=== PATIENT | female | born 1970 | race Hispanic/Latino ===

== ENCOUNTER 2017-02-27 20:31 | Emergency (ER) | payer BC ==
[2017-02-27 20:31] VITALS: BMI 38.9
[2017-02-27 20:40] VITALS: RESP 18; TEMP 98.1; O2SAT 99
[2017-02-27 21:54] VITALS: BP 148/84; PULSE 78
== END 2017-02-27 21:55 | disposition left against medical advice (07) ==
LOC: ED 20:31
DX: Z02.89 Encounter for other administrative examinations (principal); I10 Essential (primary) hypertension

== ENCOUNTER 2017-03-11 13:11 | Emergency (ER) | payer BC ==
[2017-03-11 13:12] VITALS: BMI 38.9
[2017-03-11 13:25] VITALS: BP 144/90; PULSE 128; RESP 19; TEMP 98.7; O2SAT 98
[2017-03-11] MEDS ORDERED: Pantoprazole 40 mg EC Tab PO STA (13:49)
--- NOTE | 2017-03-11 13:52 | ED PDOC ---
Arrival/HPI - General Historian: Patient - History of Present Illness Time/Duration: > week Symptom Course: Worsening Quality: Burning - General Chief Complaint: Abdominal Pain Time Seen by Provider: 03/11/17 13:20 - History of Present Illness Narrative History of Present Illness (Text): 03/11/17 13:51 47 year old female with past medical history of hypertension, asthma, and lupus presents with epigastric pain. Patient reports the pain started 2 weeks ago. The pain is located at epigastrium, burning in quality, radiates under her ribs to her back, 5/10 in intensity. Initially patient took over the counter ranitidine which provided some relief, but it no longer helps her after a few days. The pain is worse with food intake and lying down. Patient was referred see to Dr. Nicole for this complaint. Patient was evaluated, had EKG and TSH done on 03/06/17 and was told they were normal. Patient is compliant with her medications. She reports feeling anxious for being in the hospital. Patient denies having headache, fever, chills, SOB, chest pain, coughs, lower extremity swelling or pain. (Leoncio Ku) Past Medical History - Provider Review Nursing Documentation Reviewed: Yes - Infectious Disease Hx of Infectious Diseases: None - Cardiac Hx Hypertension: Yes Other/Comment: LUPUS. 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) - Psychiatric Hx Psychophysiologic Disorder: Yes (SMOKED CIGARETTES,QUIT) Hx Substance Use: No - Past Surgical History Past Surgical History: Non-Contributing - Anesthesia Hx Anesthesia: Yes Hx Anesthesia Reactions: No Hx Malignant Hyperthermia: No - Suicidal Assessment Feels Threatened In Home Enviroment: No Family/Social History - Physician Review Nursing Documentation Reviewed: Yes Family/Social History: CVA/TIA, CAD/TN Smoking Status: Former Smoker Hx Alcohol Use: No Hx Substance Use: No Hx Substance Use Treatment: No Allergies/Home Meds Allergies/Adverse Reactions: Allergies No Known Allergies Allergy (Verified 03/11/17 13:25) Home Medications: Home Meds Medication Instructions Recorded Confirmed Hydroxychloroquine Sulfate 200 mg PO BID 12/15/14 03/11/17 [Plaquenil] Valsartan [Diovan] 80 mg PO DAILY 12/15/14 03/11/17 busPIRone [Buspar] 7.5 mg PO DAILY 03/11/17 03/11/17 Review of Systems - Physician Review All systems were reviewed & negative as marked: Yes - Review of Systems Constitutional: Normal. absent: Fevers Eyes: Normal ENT: Normal Respiratory: Normal. absent: SOB, Cough Cardiovascular: Normal. absent: Chest Pain, Palpitations, Edema, Calf Pain, Syncope Gastrointestinal: Abdominal Pain (epigastric), Nausea. absent: Stool Changes, Constipation, Vomiting Genitourinary Female: Normal. absent: Dysuria, Frequency, Hematuria Musculoskeletal: Normal. absent: Arthralgias, Back Pain Skin: Other (erythema) Neurological: Normal. absent: Headache, Dizziness Endocrine: Normal. absent: Diaphoresis, Polyuria, Polydipsia Hemo/Lymphatic: Normal Psychiatric: Anxiety Physical Exam Vital Signs Reviewed: Yes Temperature: Afebrile Blood Pressure: Normal Pulse: Tachycardic Respiratory Rate: Normal Appearance: Positive for: Well-Appearing, Non-Toxic, Comfortable Pain Distress: Mild Mental Status: Positive for: Alert and Oriented X 3 - Systems Exam Head: Present: Atraumatic, Normocephalic Pupils: Present: PERRL Extroacular Muscles: Present: EOMI Conjunctiva: Present: Normal Mouth: Present: Moist Mucous Membranes Neck: Present: Normal Range of Motion Respiratory/Chest: Present: Clear to Auscultation, Good Air Exchange. No: Respiratory Distress, Accessory Muscle Use Cardiovascular: Present: Normal S1, S2, Peripheal Pulses Present, Tachycardic. No: Murmurs, Irregular Rhythm Abdomen: Present: Tenderness (epigastric tenderness), Normal Bowel Sounds, Other (negative [place] sign). No: Distention, Peritoneal Signs, Guarding, McBurney's Point Tender, Hernias, Mass/Organomegaly Back: Present: Normal Inspection Upper Extremity: Present: Normal Inspection, Neurovascularly Intact. No: Cyanosis, Edema Lower Extremity: Present: Normal Inspection, Neurovascularly Intact. No: Edema Neurological: Present: GCS=15, CN II-XII Intact, Speech Normal Skin: Present: Warm, Dry, Normal Color, Erythematous (facial erythema). No: Rashes Psychiatric: Present: Alert, Oriented x 3, Normal Insight, Normal Concentration Medical Decision Making Re-evaluation Time: 14:48 Reassessment Condition: Improved ED Course and Treatment: 03/11/17 14:17 -CBC, CMP -Cardiac iso -Lipase -Protonix IV -IVF -recheck BP -EKG -Reassess and disposition DDx: GERD, pancreatitis, atypical [place] Prior visit: 12/15/16 for chest pain Progress Note: Pulse improved to 90bpm, BP 146/89. Epigastric abdominal pain improved. Tolerating oral fluid well, resting comfortably. 03/11/17 15:05 Discussed with patient extensively that although protonix helps with her symptoms but it is still very important to follow up with PMD and GI specialist for further work up and prison management of GERD. Patient verbalized full understanding of above discussion. Patient states that she fully agrees with and understands discharge instructions. (Leoncio Ku) 03/11/17 14:33 In agreement with resident note which contains more details about the patient. Patient was seen and evaluated with resident. Came up with plan and treatment together. Patient presents to the emergency department complaining of 2 week duration of epigastric pain radiating to ribs. Ordered labs, cardiac enzymes, EKG, to rule out cardiac etiologies. States symptoms resolved after protonix. Stable for discharge. Advised to follow up with PMD and present to emergency department for new/worsening symptoms. (Parker Cárdenas) - Lab Interpretations Lab Results: 03/11/17 14:20 03/11/17 14:20 Lab Results 03/11/17 14:20: Sodium 139, Potassium 3.8, Chloride 103, Carbon Dioxide 23, Anion Gap 17, BUN 10, Creatinine 0.6, Est GFR ( Amer) > 60, Est GFR (Non- Af Amer) > 60, Random Glucose 95, Calcium 9.9, Total Bilirubin 0.7, AST 22, ALT 28, Alkaline Phosphatase 92, Lactate Dehydrogenase 377, Total Creatine Kinase 49 , Troponin I < 0.01, Total Protein 8.0, Albumin 4.9 H, Globulin 3.1, Albumin/ Globulin Ratio 1.6, Lipase 57 07/30/17 14:20: WBC 13.1 H, RBC 5.10, Hgb 15.0, Hct 43.2, MCV 84.7, MCH 29.4, MCHC 34.7, RDW 13.2, Plt Count 292, MPV 10.8, Gran % 75.9 H, Lymph % (Auto) 18.6 L, [place] % (Auto) 5.0, Eos % (Auto) 0.3 L, Baso % (Auto) 0.2, Gran # 9.95 H , Lymph # 2.4, [place] # 0.7 H, Eos # 0.0, Baso # 0.03 - RAD Interpretation Narrative RAD Interpretations (Text): 03/11/17 15:09 CXR showed no active disease, read by me. (Leoncio Ku) Radiology Orders: 03/11/17 13:49 CHEST PORTABLE [RAD] Stat - EKG Interpretation EKG Interpretation (Text): 03/11/17 14:27 Sinus tachycardia at 118bpm, no acute ST elevations appreciated. Read by me. ( Leoncio Ku) - Medication Orders Current Medication Orders: Discontinued Medications Sodium Chloride (Sodium Chloride 0.9%) 1,000 mls @ 100 mls/hr IV .Q10H ANNE MARIE Last Admin: 03/11/17 14:17 Dose: 100 mls/hr Pantoprazole Sodium (Protonix Ec Tab) 40 mg PO STAT STA Stop: 03/11/17 13:50 Last Admin: 03/11/17 14:55 Dose: Pantoprazole Sodium (Protonix Inj) 40 mg IVP STAT STA Stop: 03/11/17 13:56 Last Admin: 03/11/17 14:17 Dose: 40 mg - PA / ATHLETIC TRAINER / Resident Statement JOSE ANTONIO has reviewed & agrees with the documentation as recorded. / has examined the patient and agrees with the treatment plan. Disposition/Present on Arrival - Present on Arrival Any Indicators Present on Arrival: No History of DVT/PE: No History of Uncontrolled Diabetes: No Urinary Catheter: No History of Decub. Ulcer: No History Surgical Site Infection Following: None - Disposition Have Diagnosis and Disposition been Completed?: Yes Disposition Time: 16:07 Patient Plan: Discharge - Disposition Diagnosis: GERD (gastroesophageal reflux disease) Disposition: HOME/ ROUTINE Condition: GOOD Discharge Instructions (ExitCare): Gastroesophageal Reflux Disease (ED) Additional Instructions: Sandra Uribe, thank you for letting us take care of you today. Your provider was Dr. Cárdenas. You were treated for GERD. The emergency medical care you received today was directed at your acute symptoms. If you were prescribed any medication, please fill it and take as directed. It may take several days for your symptoms to resolve. Return to the Emergency Department if your symptoms worsen, do not improve, or if you have any other problems. Please contact your doctor or call one of the physicians/clinics you have been referred to that are listed on the Patient Visit Information form that is included in your discharge packet. Bring any paperwork you were given at discharge with you along with any medications you are taking to your follow up visit. Our treatment cannot replace ongoing medical care by a primary care provider (PCP) outside of the emergency department. Thank you for allowing the [facility] team to be part of your care today. Please medication as prescribed. Follow up with your PMD and GI Dr. López for further GI work up and recommendations. Prescriptions: Pantoprazole [Protonix] 40 mg PO DAILY #30 ect Referrals: Milan Alvarado MD [Primary Care Provider] - Follow up with primary Forms: [employer] (Bel[place]ian)
[2017-03-11] MEDS ORDERED: Sodium Chloride 0.9% 1,000 ML IV SCH (14:00)
[2017-03-11 14:32] LABS: BASO # 0.03 K/mm3 (0.0-2.0); BASO % 0.2 % (0.0-3.0); EOS % 0.3 % (1.5-5.0); GRAN # 9.95 (1.4-6.5); GRAN % 75.9 % (50.0-68.0); LYMPH # 2.4 (1.2-3.4); LYMPH % 18.6 % (22.0-35.0); MEAN CELL VOLUME 84.7 fL (80.0-105.0); MEAN CORPUSCULAR HEMOGLOBIN 29.4 pg (25.0-35.0); MEAN CORPUSCULAR HGB CONC 34.7 g/dl (31.0-37.0); MEAN PLATELET VOLUME 10.8 fl (7.0-11.0); MONO # 0.7 (0.1-0.6); PLATELET COUNT 292 10^3/uL (120.0-450.0); RED CELL DISTRIBUTION WIDTH 13.2 % (11.5-14.5); WHITE BLOOD COUNT 13.1 10^3/ul (4.5-11.0)
[2017-03-11 14:44] LABS: ALB/GLOB RATIO 1.6 (1.1-1.8); ALBUMIN 4.9 g/dL (3.0-4.8); ALT/SGPT 28 U/L (7-56); AST/SGOT 22 U/L (15-39); BLOOD UREA NITROGEN 10 mg/dL (7-21); CALCIUM 9.9 mg/dL (8.4-10.5); GFR AFRICAN-AMERICAN > 60; GFR NON-AFRICAN AMERICAN > 60; LIPASE 57 U/L (23-300)
[2017-03-11 15:12] LABS: TROPONIN I < 0.01 ng/mL
--- NOTE | 2017-03-11 16:18 | RAD ---
HISTORY: epigastric pain COMPARISON: Prior portable chest 12/15/2014. FINDINGS: LUNGS: No active pulmonary disease. PLEURA: No significant pleural effusion identified, no pneumothorax apparent. CARDIOVASCULAR: Normal. OSSEOUS STRUCTURES: No significant abnormalities. VISUALIZED UPPER ABDOMEN: Normal. OTHER FINDINGS: None. IMPRESSION: No acute cardiopulmonary disease or significant interval changes identified.
--- NOTE | 2017-03-12 18:44 | CARD ---
APPROVED REPORT EKG Measurement Heart [id number] <Conclusion> Sinus tachycardia Possible Left atrial enlargement Cannot rule out Anterior infarct, age undetermined Abnormal ECG
== END 2017-03-11 16:41 | disposition home or self-care (01) ==
LOC: ED 13:11
DX: K21.9 Gastro-esophageal reflux disease without esophagitis (principal); I10 Essential (primary) hypertension; M32.9 Systemic lupus erythematosus, unspecified; Z87.891 Personal history of nicotine dependence
CPT/HCPCS: 71010; 80053; 82550; 83615; 83690; 84484; 85025; 93005; 96361; 96374; 99283; C9113; J7040